=== PATIENT | male | born 1945 | race Caucasian/White ===

== ENCOUNTER 2018-08-27 15:44 | Emergency (ER) | payer MEDICARE, OTHER ==
[~2018-08-27] VITALS: Ht 170.2 cm; Wt 80.7 kg
[~2018-08-27 15:44] MED LIST: IBUPROFEN600 MG ORAL; LEXAPRO10 MG ORAL; NORCO 5-325 TA1 EACH ORAL; ROBAXIN-750750 MG PO; XANAX1 MG ORAL
[2018-08-27] MEDS ORDERED: CRESTOR10 M2 ORAL (15:59)
[2018-08-27] MEDS ORDERED: AMBIEN5 MG ORAL (15:59)
[2018-08-27] MEDS ORDERED: NEXIUM40 MG ORAL (15:59)
[2018-08-27] MEDS ORDERED: METOPROLOL SUCC50 MG ORAL (15:59)
[2018-08-27 16:06] VITALS: BP 151/81
--- NOTE | 2018-08-27 16:07 | NUR ---
ED Nurse Note:pt. came from home with c/o left hip sciatica pain radiating down, no injury reported
--- NOTE | 2018-08-27 16:23 | Emergency Room Report ---
History of Present Illness General Chief Complaint: Back Pain-No Injury Source: Patient Present Illness HPI Patient has a history of lumbar discomfort that usually controlled with prescription medications. 5 days ago the pain worsened and is now severe. It' s radiating down his left leg. He denies numbness there. There is no dysuria or hematuria. He was in a warm shower the day before and thinks he might of twisted his back. He rates the pain 10/10 at this time severe and worse when he is trying to bend over. Denies any trauma. Is not taking blood thinners and denies fevers. The pain is burning and severe. Initially multiple medications are listed. Later the patient states that he is run out of pain medication at this time. He reports that no imaging studies have been done. Allergies: Coded Allergies: No Known Allergies (Unverified , 08/27/13) Patient History Past Medical History: see triage record Social History: Denies: smoking Social History Narrative With friend Reviewed Nursing Documentation: PMH: Agreed; PSxH: Agreed Nursing Documentation-PMH Past Medical History: No History, Except For Hx Cardiac Problems: Yes - arrhythmia Hx Hypertension: No Hx Pacemaker: No Hx Asthma: No Hx COPD: No Hx Diabetes: No Hx Cancer: Yes - Prostate Hx Gastrointestinal Problems: No Hx Dialysis: No History Of Psychiatric Problem: Yes - depression Hx Neurological Problems: No Hx Cerebrovascular Accident: No Hx Seizures: No Review of Systems All Other Systems: negative except mentioned in HPI Physical Exam Vital Signs Date Time Temp Pulse Resp B/P (MAP) Pulse Ox O2 Delivery O2 Flow Rate FiO2 08/27/18 15:53 97.9 55 14 151/81 94 Room Air Sp02 EP Interpretation: reviewed, normal General Appearance: well appearing, no apparent distress, GCS 15 Head: normocephalic, atraumatic Eyes: bilateral eye normal inspection, bilateral eye PERRL ENT: moist mucus membranes Neck: supple Respiratory: lungs clear, normal breath sounds Cardiovascular #1: regular rate, rhythm Cardiovascular #2: 2+ radial (R) Gastrointestinal: normal inspection, normal bowel sounds, non tender, no mass, non-distended Musculoskeletal: other - Straight leg raise is positive on the left-hand side at 45 with some radiation down the left leg. It's straight leg raise on the right has no crossover pain., tender - Paraspinous and lumbar with no point tenderness Neurologic: alert, oriented x3, motor strength/tone normal, DTRs symmetric, SLR negative, sensory intact, normal gait, speech normal Psychiatric: mood/affect normal Reflexes: 2+ knee (R), 2+ knee (L); 1+ ankle (R), 1+ ankle (L) Skin: normal inspection, warm/dry Medical Decision Making Diagnostic Impression: Primary Impression: Sciatica Qualified Codes: M54.32 - Sciatica, left side Additional Impression: Renal insufficiency ER Course Patient presents with severe back pain radiating at down his left leg. Differential includes back strain, sciatica amongst disc herniation, sequela of prostate cancer amongst others. He's never had imaging done before and because of his age and comorbidities CT of the lumbar spine is indicated. In addition lab will be performed. He'll receive analgesia also. Labs unremarkable. There is minimal renal insufficiency. CT of the lumbar spine performed which excludes fracture, subluxation. Allegedly there is no significant foraminal encroachment. The patient states that the pain is unchanged after initial treatment. Dilaudid 1 mg was given IV. The patient states that the pain is still significant however he appears much more comfortable is able to move about without difficulty. Consideration for admission to the hospital for possible further pain control and consideration of MRI imaging. Based on the nonfocal neurologic exam lack of risk factors likelihood of abscess or oncologic problems is low. However I suggested admission to the hospital. The patient declines at this point. Mainly wants a refill of his pain medication at this time. He was advised to follow-up with his doctor Wednesday or to return if the pain worsened. No medical or neurologic emergency present at this time. Patient is stable for outpatient observation and treatment. Laboratory Tests Test 08/27/18 16:20 White Blood Count 5.1 K/UL (4.8-10.8) Red Blood Count 4.05 M/UL (4.70-6.10) L Hemoglobin 13.0 G/DL (14.2-18.0) L Hematocrit 39.0 % (42.0-52.0) L Mean Corpuscular Volume 96 FL (80-99) Mean Corpuscular Hemoglobin 32.0 PG (27.0-31.0) H Mean Corpuscular Hemoglobin Concent 33.2 G/DL (32.0-36.0) Red Cell Distribution Width 12.2 % (11.6-14.8) Platelet Count 157 K/UL (150-450) Mean Platelet Volume 11.2 FL (6.5-10.1) H Neutrophils (%) (Auto) 47.6 % (45.0-75.0) Lymphocytes (%) (Auto) 36.6 % (20.0-45.0) Monocytes (%) (Auto) 10.5 % (1.0-10.0) H Eosinophils (%) (Auto) 3.1 % (0.0-3.0) H Basophils (%) (Auto) 2.3 % (0.0-2.0) H Erythrocyte Sedimentation Rate 21 MM/HR (0-20) H Prothrombin Time 10.1 SEC (9.30-11.50) Prothrombin Time INR 1.0 (0.9-1.1) PTT 28 SEC (23-33) Urine Color Pale yellow Urine Appearance Clear Urine pH 7 (4.5-8.0) Urine Specific [place] 1.005 (1.005-1.035) Urine Protein Negative (NEGATIVE) Urine Glucose (UA) Negative (NEGATIVE) Urine Ketones Negative (NEGATIVE) Urine Blood Negative (NEGATIVE) Urine Nitrite Negative (NEGATIVE) Urine Bilirubin Negative (NEGATIVE) Urine Urobilinogen Normal MG/DL (0.0-1.0) Urine Leukocyte Esterase Negative (NEGATIVE) Urine RBC 0 /HPF (0 - 0) Urine WBC 0-2 /HPF (0 - 0) Urine Squamous Epithelial Cells Occasional /LPF Urine Bacteria Occasional /HPF (NONE) Sodium Level 138 MMOL/L (136-145) Potassium Level 4.5 MMOL/L (3.5-5.1) Chloride Level 103 MMOL/L (98-107) Carbon Dioxide Level 28 MMOL/L (21-32) Anion Gap 7 mmol/L (5-15) Blood Urea Nitrogen 17 mg/dL (7-18) Creatinine 1.4 MG/DL (0.55-1.30) H Estimate Glomerular Filtration Rate mL/min (>60) Glucose Level 102 MG/DL (74-106) Calcium Level 8.9 MG/DL (8.5-10.1) Total Bilirubin 0.5 MG/DL (0.2-1.0) Aspartate Amino Transferase (AST) 13 U/L (15-37) L Alanine Aminotransferase (ALT) 18 U/L (12-78) Alkaline Phosphatase 96 U/L (46-116) Total Protein 7.2 G/DL (6.4-8.2) Albumin 3.7 G/DL (3.4-5.0) Globulin 3.5 g/dL Albumin/Globulin Ratio 1.1 (1.0-2.7) CT/MRI/US Diagnostic Results CT/MRI/US Diagnostic Results : Imaging Test Ordered: Lumbar spine Impression No fracture, subluxation Last Vital Signs Date Time Temp Pulse Resp B/P (MAP) Pulse Ox O2 Delivery O2 Flow Rate FiO2 08/27/18 19:45 97.9 80 14 151/81 94 Room Air Status: improved Disposition: HOME, SELF-CARE Condition: Improved Scripts Tramadol Hcl* (ULTRAM*) 50 Mg Tablet 50 MG ORAL Q6H PRN for For Pain, #10 TAB 0 Refills Prov: Lux Cruz MD 08/27/18 Ibuprofen* (MOTRIN*) 600 Mg Tablet 600 MG ORAL Q6H PRN for For Pain, #20 TAB Prov: Lux Cruz MD 08/27/18 Acetaminophen (Tylenol) 325 Mg Tablet 650 MG ORAL Q6H PRN for Prn Pain/Headache/Temp > 101, #20 TAB 0 Refills Prov: Lux Cruz MD 08/27/18 Lux Cruz MD Aug 27, 2018 16:23
[2018-08-27] MEDS ORDERED: Ketorolac 30mg Inj IV ONE (16:30)
[2018-08-27] MEDS ORDERED: Morphine Sulfate 4mg/ml Inj (IV/IM USE ONLY) IVP ONE (16:30)
[2018-08-27] MEDS ORDERED: Cyclobenzaprine 10mg Tab ORAL ONE (16:30)
--- NOTE | 2018-08-27 16:50 | NUR ---
ED Nurse Note:blood and urine sent to labs and iv meds given to pt. , he had CT scan done
[2018-08-27 16:51] LABS: APPEARANCE,URINE CLEAR; BILIRUBIN, URINE NEGATIVE (NEGATIVE); COLOR,URINE PALE YELLOW; GLUCOSE, URINE (UA) NEGATIVE (NEGATIVE); KETONES,URINE NEGATIVE (NEGATIVE); LEUKOCYTE ESTERASE ,URINE NEGATIVE (NEGATIVE); NITRITE,URINE NEGATIVE (NEGATIVE); PH,URINE 7 (4.5-8.0); PROTEIN,URINE NEGATIVE (NEGATIVE); UROBILINOGEN,URINE NORMAL MG/DL (0.0-1.0)
[2018-08-27 16:52] LABS: BASOPHILS % (AUTO) 2.3 % (0.0-2.0); EOSINOPHILS % (AUTO) 3.1 % (0.0-3.0); LYMPHOCYTES % (AUTO) 36.6 % (20.0-45.0); MEAN CORPUSCULAR VOLUME 96 FL (80-99); MONOCYTES % (AUTO) 10.5 % (1.0-10.0); NEUTROPHILS % (AUTO) 47.6 % (45.0-75.0); PLATELET COUNT 157 K/UL (150-450); RED BLOOD COUNT 4.05 M/UL (4.70-6.10); RED CELL DISTRIBUTION WIDTH 12.2 % (11.6-14.8); WHITE BLOOD COUNT 5.1 K/UL (4.8-10.8)
[2018-08-27 17:17] LABS: ANION GAP 7 mmol/L (5-15); BLOOD UREA NITROGEN 17 mg/dL (7-18); CALCIUM 8.9 MG/DL (8.5-10.1); CARBON DIOXIDE 28 MMOL/L (21-32); CHLORIDE 103 MMOL/L (98-107); CREATININE 1.4 MG/DL (0.55-1.30); POTASSIUM 4.5 MMOL/L (3.5-5.1); SODIUM 138 MMOL/L (136-145)
[2018-08-27 17:22] LABS: ALANINE AMINOTRANSFERASE 18 U/L (12-78); ALBUMIN 3.7 G/DL (3.4-5.0); ALBUMIN/GLOBULIN RATIO 1.1 (1.0-2.7); ALKALINE PHOSPHATASE 96 U/L (46-116); ASPARTATE AMINO TRANSFERASE 13 U/L (15-37); BILIRUBIN,TOTAL 0.5 MG/DL (0.2-1.0)
--- NOTE | 2018-08-27 18:15 | Diagnostic Imaging Report ---
EXAM: CT Lumbar Spine Without Intravenous Contrast CLINICAL HISTORY: PAIN TECHNIQUE: Axial computed tomography images of the lumbar spine without intravenous contrast. CTDI is 15 mGy and DLP is 431 mGy-cm. One or more of the following dose reduction techniques were used: automated exposure control, adjustment of the mA and/or kV according to patient size, use of iterative reconstruction technique. COMPARISON: No relevant prior studies available. FINDINGS: Limitations: Limited due to motion. Vertebrae: No definite acute fracture or subluxation. Discs/spinal canal/neural foramina: No acute findings. Soft tissues: Unremarkable. IMPRESSION: 1. Limited due to motion. 2. No definite acute fracture or subluxation.
[2018-08-27] MEDS ORDERED: Hydromorphone 0.5mg/0.5ml inj IVP ONE (18:45)
[2018-08-27] MEDS ORDERED: TRAMADOL HCL50 MG ORAL (19:39)
[2018-08-27] MEDS ORDERED: TYLENOL325 MG ORAL (19:39)
[2018-08-27] MEDS ORDERED: IBUPROFEN600 MG ORAL (19:39)
[2018-08-27 19:45] VITALS: BP 151/81
--- NOTE | 2018-08-27 19:45 | NUR ---
ED Nurse Note: Patient cleared for discharge per ERMD. AO4. NAD. VSS. Accompanied by family member. Patient given prescriptions and discharge instructions; verbalized understanding. IV and ID band removed. Patient ambulated out with all personal belongings with steady gait.
== END 2018-08-27 19:45 | disposition home or self-care (01) ==
LOC: EMR 17:10
DX: M54.32 Sciatica, left side (principal); N28.9 Disorder of kidney and ureter, unspecified; Z85.46 Personal history of malignant neoplasm of prostate; F32.9 Major depressive disorder, single episode, unspecified
CPT/HCPCS: 36415; 72131; 80053; 81001; 85025; 85610; 85651; 85730; 96374; 96375; 99284; J1170; J1885; J2270; J2405